=== PATIENT | male | born 1945 | race Caucasian/White ===

== ENCOUNTER 2019-12-22 09:32 | Inpatient (IN) | payer OTHER ==
[~2019-12-22] VITALS: Ht 172.7 cm; Wt 69.0 kg
[2019-12-22 09:46] LABS: HEMATOCRIT 21.2 % (42.0-52.0); HEMOGLOBIN 7.3 gm/dL (14.0-18.0); MCH 31.5 pg (26.0-34.0); MCHC 34.5 g/dL (28.0-37.0); MCV 91.4 fL (80.0-100.0); MPV 6.4 fl. (7.2-11.1); NUCLEATED RBCS 0 /100WBC; PLATELET COUNT* 292 thou/uL (150-400); RBC 2.31 mil/uL (4.50-6.00); RDW-CV 25.4 % (10.5-14.5); WBC 6.4 thou/uL (4.0-11.0)
[2019-12-22] MEDS ORDERED: REGLAN 5 MG TAB5 MG PO (09:47)
[2019-12-22] MEDS ORDERED: LIDOCAINE5 GM TOP (09:47)
[2019-12-22] MEDS ORDERED: PROTONIX40 M2 PO (09:48)
[2019-12-22] MEDS ORDERED: ONDANSETRON ODT8 MG PO (09:48)
[2019-12-22] MEDS ORDERED: CARAFATE 1 GM TA1 GM PO (09:48)
[2019-12-22] MEDS ORDERED: TIZANIDINE HCL4 M1 PO (09:49)
[2019-12-22] MEDS ORDERED: BACTRIM DS TAB1 EAC1 PO (09:50)
[2019-12-22] MEDS ORDERED: INTERMEZZO3.5 MG PO (09:50)
[2019-12-22 09:51] VITALS: BP 75/44
[2019-12-22 09:54] LABS: CALCIUM 7.3 mg/dL (8.5-10.1); CREATININE 0.9 mg/dL (0.6-1.3); POTASSIUM 4.1 mmol/L (3.5-5.1)
[2019-12-22 09:58] LABS: ALBUMIN 1.8 g/dL (3.4-5.0); MAGNESIUM 1.7 mg/dL (1.8-2.4); TOTAL BILIRUBIN 0.4 mg/dL (<0.1-1.0); TOTAL PROTEIN 4.6 g/dL (6.4-8.2)
--- NOTE | 2019-12-22 10:00 | NUR ---
CODE STROKE ACTIVATED FROM THE FIELD. SEE CODE STROK PAPERWORK.
[2019-12-22 10:13] LABS: ABSOLUTE LYMPHOCYTES 0.7 thou/uL (0.8-5.3); ABSOLUTE MONOCYTES 0.5 thou/uL (0.0-1.2); ABSOLUTE NEUTROPHILS 5.2 thou/uL (1.6-8.1); ANISOCYTOSIS 2+; METAMYELOCYTES 2 %
[2019-12-22 10:14] LABS: PLATELET ESTIMATE ADEQUATE
[2019-12-22 10:18] LABS: APTT 39.4 Seconds (25.0-31.3); INR 1.1; PROTIME 10.9 Seconds (9.20-11.50)
--- NOTE | 2019-12-22 10:40 | NUR ---
PICC LINE IN PLACE PRIOR TO PATIENT'S ARRIVAL.
[2019-12-22 10:56] LABS: URINE BILIRUBIN NEGATIVE (Negative); URINE BLOOD NEGATIVE (Negative); URINE CLARITY CLEAR; URINE COLOR YELLOW; URINE GLUCOSE-RANDOM NEGATIVE (Negative); URINE KETONES NEGATIVE (Negative); URINE LEUKOCYTES-REFLEX NEGATIVE (Negative); URINE NITRITE-REFLEX NEGATIVE (Negative); URINE PROTEIN NEGATIVE (Negative); URINE UROBILINOGEN 0.2 E.U./dl (0.2-1.0)
[2019-12-22] MEDS ORDERED: LOVENOX30 MG/0.3 SUBQ (11:00)
[2019-12-22 14:42] VITALS: BP 124/63
--- NOTE | 2019-12-22 15:34 | NUR ---
PT ORIENTED TO ROOM AND UNIT. TELE APLLIED AND PT PASSED BEDSIDE SWALLOW EVSALUATION BY SPEECH. BED LOW AND LOCKED, SIDE RAILS UP X3, CALL LIGHT IN REACH. DR. LOVING WILL ASSESS IN THE AM.
--- NOTE | 2019-12-22 16:05 | EKG ---
[place] [id number] ELECTROCARDIOGRAM REPORT Name: SERA PLATA Room: [address] ADM IN M.R.#: [id number] Admission: 12/22/19 Attend Phys: Jj Doll, Discharge: Date of : 41 Date of Service: 12/22/19 1001 Report #: [id number] THIS REPORT FOR: //name// [facility] ED Test Date: 2019-12-22 Test Time: 10:01:32 Pat Name: SERA PLATA Department: Room: [facility] Gender: M Vp Strategy: MS : 1945 Requested By: Latasha Godinez Order Number: [id number] MD: Servando Salcido Measurements Intervals [place] Rate: 63 P: 48 LA: 168 QRS: -13 QRSD: 103 T: 27 QT: 404 QTc: 414 Interpretive Statements Sinus rhythm Low voltage, precordial leads Baseline wander in lead(s) V6 No previous ECG available for comparison Electronically Signed On 12-22-2019 16:04:01 CDT by Servando Salcido [email or web address] <ELECTRONICALLY SIGNED> By: Servando Salcido MD, [facility] 12/22/19 1604 1001 1001 Servando Salcido MD, [facility] /EPI
[2019-12-22 16:48] VITALS: BP 122/65
--- NOTE | 2019-12-22 18:10 | 2DMMODE ---
[place] [address] 2 D/M-MODE ECHOCARDIOGRAM Name: SERA PLATA Room: [address] IN [facility]#: [id number] Admission: 12/22/19 Attend Phys: Jj Doll, Discharge: Date of : 41 Date of Service: 12/22/19 1808 Report #: [id number] THIS REPORT FOR: cc: Chu Cordero MD, Anthony MD Liston, Michael J. MD [facility] ~ APPROVED REPORT Study performed: 12/22/2019 15:38:17 EXAM: Comprehensive 2D, Doppler, and color-flow Echocardiogram Patient Location: In-Patient Room #: [facility] Status: routine BSA: 1.82 HR: 52 bpm BP: 124/63 mmHg Rhythm: NSR Other Information Study Quality: Good Indications CVA/TIA Echo Enhancing Agent Indication: Rule out Shunt Agent(s) / Amount(s) Used: Agitated Saline 10 cc 2D Dimensions IVSd: 9.90 (7-11mm) LVOT Diam: 20.82 (18-24mm) LVDd: 42.07 mm PWd: 9.03 (7-11mm) Ascending Ao: 36.68 (22-36mm) LVDs: 25.99 (25-40mm) Aortic Root: 37.42 mm Volumes Left Atrial Volume (Systole) LA ESV Index: 24.00 mL/m2 Aortic Valve AoV Peak Uriah.: 1.25 m/s AO Peak Gr.: 6.28 mmHg LVOT Max P.27 mmHg AO Mean Gr.: 3.47 mmHg LVOT Mean P.50 [place] [address] 2 D/M-MODE ECHOCARDIOGRAM Name: SERA PLATA Room: [address] IN .R.#: [id number] Admission: 12/22/19 Attend Phys: Jj Doll, Discharge: Date of : 41 Date of Service: 12/22/19 1808 Report #: [id number] LVOT Max V: 0.90 m/s AO V2 VTI: 25.56 cm LVOT Mean V: 0.55 m/s RASTA (VTI): 2.53 cm2 LVOT V1 VTI: 19.01 cm Mitral Valve E/A Ratio: 1.36 MV Decel. Time: 240.35 ms MV E Max Uriah.: 0.90 m/s MV PHT: 69.70 ms MVA (PHT): 3.16 cm2 TDI E/Lateral E': 6.92 E/Medial E': 7.50 Medial E' Uriah.: 0.12 m/s Lateral E' Uriah.: 0.13 m/s Pulmonary Valve PV Peak Uriah.: 0.92 m/s PV Peak Gr.: 3.36 mmHg Left Ventricle The left ventricle is normal size. There is normal LV segmental wall motion. There is normal left ventricular wall thickness. Left ventricular systolic function is normal. LVEF is 60-65%. Transmitral Doppler flow pattern suggests impaired LV relaxation. Right Ventricle The right ventricle is normal size. The right ventricular systolic function is normal. Atria The left atrium size is normal. The interatrial septum is intact with no evidence for an atrial septal defect. The right atrium size is normal. Aortic Valve The aortic valve is normal in structure. No aortic regurgitation is present. There is no aortic valvular stenosis. Mitral Valve The mitral valve is normal in structure. There is no mitral valve regurgitation noted. No evidence of mitral valve stenosis. Tricuspid Valve The tricuspid valve is normal in structure. Unable to assess PA pressure. [place] [address] 2 D/M-MODE ECHOCARDIOGRAM Name: SERA PLATA Room: [address] [place] [facility]#: [id number] Admission: 12/22/19 Attend Phys: jJ Doll, Discharge: Date of : 41 Date of Service: 12/22/19 1808 Report #: [id number] Pulmonic Valve The pulmonary valve is normal in structure. Trace pulmonic regurgitation. Great Vessels The aortic root is normal in size. IVC is normal in size and collapses >50% with inspiration. Pericardium There is no pericardial effusion. <Conclusion> The left ventricle is normal size. There is normal left ventricular wall thickness. Left ventricular systolic function is normal. LVEF is 60-65%. Transmitral Doppler flow pattern suggests impaired LV relaxation. The interatrial septum is intact with no evidence for an atrial septal defect. IVC is normal in size and collapses >50% with inspiration. <ELECTRONICALLY SIGNED> By: Cody Allen MD, FACC 12/22/191807 07 07 Cody Allen MD, FACC /INF
--- NOTE | 2019-12-22 18:52 | NUR ---
REPORT CALLED TO MAITE SHERMAN AT [facility].
--- NOTE | 2019-12-22 21:41 | NUR ---
REPORT GIVEN TO EMS, PT TRANSFERED OUT OF HOSPITAL BY [facility].
--- NOTE | 2019-12-23 09:24 | NUR ---
RECIEVED O.T. ORDERS. PT. TRANSFERRED TO THE [facility] PRIOR TO O.T. EVAL.
== END 2019-12-22 19:30 | disposition short-term general hospital (02) | DRG 70 ==
LOC: M.ERS 09:32 → M.TBA-ER 11:35 → M.2W 14:50
PROVIDERS: Personal Emergency Response Attendant; ADMIT Internal Medicine
DX: G93.41 Metabolic encephalopathy (principal); E43 Unspecified severe protein-calorie malnutrition; C85.90 Non-Hodgkin lymphoma, unspecified, unspecified site; D68.59 Other primary thrombophilia; I82.409 Acute embolism and thrombosis of unspecified deep veins of unspecified lower extremity; D61.818 Other pancytopenia; R55 Syncope and collapse; I95.9 Hypotension, unspecified; D64.9 Anemia, unspecified; M54.5 Low back pain; Z79.899 Other long term (current) drug therapy; Z92.21 Personal history of antineoplastic chemotherapy